=== PATIENT | male | born 1975 | race Two or more races ===

== ENCOUNTER 2023-08-26 09:15 | Emergency (ER) | payer OTHER ==
[2023-08-26 09:48] VITALS: RESP 18; TEMP 98.3
[2023-08-26] MEDS ORDERED: LIDOCAINE 5% PATCH TOPICAL ONE (10:35)
[2023-08-26] MEDS ORDERED: CYCLOBENZAPRINE 10 MG TAB PO STA (10:36)
--- NOTE | 2023-08-26 10:39 | ED ---
General Adult HPI - General Chief complaint: Back Pain/Injury Stated complaint: L Hip Pain Time Seen by Provider: 08/26/23 09:55 Source: patient, RN notes reviewed Mode of arrival: ambulatory Limitations: no limitations - History of Present Illness Initial comments: 48-year-old male with no significant past medical history presents to the emergency department with a chief complaint of left hip pain. Patient reports that he has had left hip pain that started back in 2021. He has been seeing a local chiropractor for weekly adjustments with symptomatic improvement. She reports that he did miss a few appointment over the last week. He did see his chiropractor yesterday who did an adjustment. He reports no symptomatic improvement. He has been taking magnesium and [id number] anti- inflammatories. Denies any injury or trauma. Denies any fever, saddle paresthesia, numbness, tingling, loss of bowel function. - Related Data Previous Rx's Medication Instructions Recorded Cyclobenzaprine [Flexeril] 5 mg PO TID PRN #15 tablet 08/26/23 Ibuprofen [Motrin] 800 mg PO Q6HR #30 tab 08/26/23 L.idocaine 5% Patch [Lidoderm] 1 patch TOPICAL DAILY #5 patch 08/26/23 predniSONE 50 mg PO DAILY #5 tab 08/26/23 Allergies Allergy/AdvReac Type Severity Reaction Status Date / Time No Known Allergies Allergy Verified 08/26/23 09:32 Review of Systems ROS Statement: Those systems with pertinent positive or pertinent negative responses have been documented in the HPI. ROS Other: All systems not noted in ROS Statement are negative. Past Medical History Past Medical History: No Reported History Past Surgical History: Hernia Repair Past Psychological History: No Psychological Hx Reported Smoking Status: Never smoker Past Alcohol Use History: Rare Past Drug Use History: None Reported General Exam - General Exam Comments Initial Comments: General: Alert, in no acute distress Head: atraumatic normocephalic. Eyes PERRL, EOMI intact, mucous membranes moist Respiratory: Lungs clear to auscultation bilaterally Cardiovascular: Heart rate regular rate and rhythm Abdominal: Soft without guarding or rebound Extremities: Normal inspection with full range of motion and normal capillary refill back: left lumbar paraspinal tenderness. No step-off. Neuroogic: alert and oriented 3, CN II-XII intact, able to ambulate with steady gait Skin: warm dry and intact with normal color Limitations: no limitations Course Vital Signs 08/26/23 08/26/23 09:30 12:50 Temperature 98.3 F Pulse Rate 72 76 Respiratory 18 18 Rate Blood Pressure 162/98 158/79 O2 Sat by Pulse 98 97 Oximetry - Reevaluation(s) Reevaluation #1: 08/26/23 12:40 re-Evaluated. Patient reports symptomatic improvement status post medications. Updated on x-ray results. Agreeable with the plan for discharge. Medical Decision Making - Medical Decision Making Was pt. sent in by a medical professional or institution (, ALEXANDRA, ELECTRONIC MASKING SYSTEM OPERATOR, urgent care, hospital, or senior care...) When possible be specific @ -[No] Did you speak to anyone other than the patient for history (EMS, parent, family, police, friend...)? What history was obtained from this source @ -[No] Did you review nursing and triage notes (agree or disagree)? Why? @ -[I reviewed and agree with nursing and triage notes] Were old charts reviewed (outside hosp., previous admission, EMS record, old EKG, old radiological studies, urgent care reports/EKG's, senior care records)? Report findings @ -[No old charts were reviewed] Differential Diagnosis (chest pain, altered mental status, abdominal pain women, abdominal pain men, vaginal bleeding, weakness, fever, dyspnea, syncope, headache, dizziness, GI bleed, back pain, seizure, CVA, palpatations, mental health, musculoskeletal)? @ -[not applicable] EKG interpreted by me (3pts min.). @ -[As above] X-rays interpreted by me (1pt min.). @ -Lumbar spine and left hip x-ray did not reveal any evidence of fracture, dislocation or degenerative joint changes. CT interpreted by me (1pt min.). @ -[None done] U/S interpreted by me (1pt. min.). @ -[None done] What testing was considered but not performed or refused? (CT, X-rays, U/S, labs)? Why? @ -[None] What meds were considered but not given or refused? Why? @ -[None] Did you discuss the management of the patient with other professionals (professionals i.e. , PA, ELECTRONIC MASKING SYSTEM OPERATOR, lab, RT, psych nurse, secondary social studies teacher, cloth presser, teacher, field artillery officer, adult protective caseworker)? Give summary @ -[No] Was smoking cessation discussed for >3mins.? @ -[No] Was critical care preformed (if so, how long)? @ -[No] Were there social determinants of health that impacted care today? How? (Homelessness, low income, unemployed, alcoholism, drug addiction, transportation, low edu. Level, literacy, decrease access to med. care, assisted, rehab)? @ -[No] Was there de-escalation of care discussed even if they declined (Discuss DNR or withdrawal of care, Hospice)? DNR status @ -[No] What co-morbidities impacted this encounter? (DM, HTN, Smoking, COPD, CAD, Cancer, CVA, ARF, Chemo, Hep., AIDS, mental health diagnosis, sleep apnea, morbid obesity)? @ -[None] Was patient admitted / discharged? Hospital course, mention meds given and route, prescriptions, significant lab abnormalities, going to OR and other pertinent info. @ Discharged. This is a 48-year-old male who presents the emergency department with left low back pain. Patient also has been physical exam performed. No focal neuro deficits noted upon exam. Patient able to ambulate with steady gait. No step-off. Mild left lumbar paraspinal muscle tenderness. Patient had x-rays which were negative. Patient was given Lidoderm patch and Flexeril was symptomatical improvement. I discussed results in detail the patient verbalizes questions addressed. He is agreeable with the plan for discharge home. Return precautions discussed at length. Case is discussed with BOB Amaya who agrees with the care Undiagnosed new problem with uncertain prognosis? @ -[No] Drug Therapy requiring intensive monitoring for toxicity (Heparin, Nitro, Insulin, Cardizem)? @ -[No] Were any procedures done? @ -[No] Diagnosis/symptom? @ -Low back pain - Left hip pain Acute, or Chronic, or Acute on Chronic? @ -Acute Uncomplicated (without systemic symptoms) or Complicated (systemic symptoms)? @ -Uncomplicated Side effects of treatment? @ -[No] Exacerbation, Progression, or Severe Exacerbation? @ -[No] Poses a threat to life or bodily function? How? (Chest pain, [place], [place], pneumonia, PE, COPD, DKA, ARF, appy, cholecystitis, CVA, Diverticulitis, Homicidal, Suicidal, threat to staff... and all critical care pts) @ -Low likelihood Disposition Clinical Impression: Back pain Disposition: HOME SELF-CARE Condition: Stable Instructions (If sedation given, give patient instructions): Acute Low Back Pain (ED) Additional Instructions: Monitor symptoms closely Please follow-up with your primary care physician Return if numbness, tingly, weakness in the extremity develop Prescriptions: Cyclobenzaprine [Flexeril] 5 mg PO TID PRN #15 tablet PRN Reason: Muscle Spasm L.idocaine 5% Patch [Lidoderm] 1 patch TOPICAL DAILY #5 patch Ibuprofen [Motrin] 800 mg PO Q6HR #30 tab predniSONE 50 mg PO DAILY #5 tab Is patient prescribed a controlled substance at d/c from ED?: No Referrals: Jennifer Lane MD [Primary Care Provider] - 1-2 days Time of Disposition: 12:41
--- NOTE | 2023-08-26 11:13 | XR ---
EXAMINATION TYPE: XR lumbar spine 2 or 3V DATE OF EXAM: 08/26/2023 COMPARISON: None HISTORY: Left hip pain TECHNIQUE: 3 view lumbar spine FINDINGS: There are 5 lumbar-type vertebral bodies. Pedicles are intact. Disc heights are preserved. Vertebral body height preserved. Some minimal spondylosis at L4. IMPRESSION: 1. No acute osseous abnormality lumbar spine
--- NOTE | 2023-08-26 11:13 | XR ---
EXAMINATION TYPE: XR Hip LT and AP Pelvis DATE OF EXAM: 08/26/2023 COMPARISON: None HISTORY: Left hip pain TECHNIQUE: AP pelvis. 2V left hip FINDINGS: Femoral head articulates with the acetabulum. Symphysis pubis and sacroiliac joints are nor mal. Joint spaces are preserved. No acute fracture or dislocation is evident. IMPRESSION: 1. No acute osseous abnormality left hip
[2023-08-26 13:12] VITALS: BP 158/79; PULSE 76
== END 2023-08-26 12:51 | disposition home or self-care (01) ==
LOC: EC 09:15
DX: M54.50 Low back pain, unspecified (principal)
CPT/HCPCS: 72100; 73502; 99283